=== PATIENT | male | born 1930 | race Caucasian/White ===

== ENCOUNTER 2016-11-25 19:46 | Emergency (ER) | payer MEDICARE, BC ==
--- NOTE | 2016-11-25 19:58 | EDM.PDOC ---
ED HPI GENERAL MEDICAL PROBLEM - General Chief Complaint: Cardiovascular Problem Stated Complaint: BLOOD PRESSURE OVER 200 Time Seen by Provider: 11/25/16 19:58 - History of Present Illness INITIAL COMMENTS - FREE TEXT/NARRATIVE: 86-year-old male presents emergency room with elevated blood pressure. He is scratch that Patient is noticed his blood pressure going up at times the top number been above 200. Patient was recently had a blood pressure medicine adjusted [facility] [place] the recently checked what sounds like a renal ultrasound that was unrevealing. Patient denies any dizziness headache change in neurologic 's check status no chest pain chest pressure he is otherwise doing okay but is very concerned about his blood pressure. The patient recently had his diltiazem increased from 60 mg a day to 120 mg a day it appears to be the long-acting formulation the XT. - Related Data Allergies Allergy/AdvReac Type Severity Reaction Status Date / Time No Known Allergies Allergy Verified 11/25/16 19:56 Home Meds: Home Meds Aspirin [Halfprin] 81 mg PO BRK 11/25/16 [History] Diltiazem HCl [Cartia Xt] 120 mg PO Q24H #15 cap.er.24h 11/25/16 [Rx] Diltiazem [Cardizem] 60 mg PO QPM 11/25/16 [History] Ferrous Sulfate [Ferosul] 325 mg PO QAM 11/25/16 [History] Hydrochlorothiazide 25 mg PO DAILY 11/25/16 [History] Hydrocodone/Acetaminophen [Hydrocodon-Acetaminophen 5-325] 1 tab PO Q6H PRN 09/08 [History] Losartan [Cozaar] 50 mg PO DAILY 11/25/16 [History] Omeprazole 20 mg PO QAM 11/25/16 [History] Simvastatin [Zocor] 10 mg PO DAILY 11/25/16 [History] Tamsulosin HCl 0.4 mg PO BID 11/25/16 [History] Vit C/E/Zn/Coppr/Lutein/Zeaxan [Preservision Areds 2 Softgel] 1 tab PO BID 11/25 [History] cloNIDine [Catapres] 0.05 mg PO Q12HR #15 tablet 11/25/16 [Rx] metFORMIN [Glucophage] 1,000 mg PO BID 11/25/16 [History] ED ROS GENERAL - Review of Systems Review Of Systems: See Below Constitutional: Reports: No Symptoms HEENT: Reports: No Symptoms Respiratory: Reports: No Symptoms Cardiovascular: Reports: Blood Pressure Problem. Denies: Chest Pain, Dyspnea on Exertion, Edema, Lightheadedness, Syncope GI/Abdominal: Reports: No Symptoms Neurological: Reports: No Symptoms ED EXAM, GENERAL - Physical Exam Exam: See Below Exam Limited By: No Limitations General Appearance: Alert, No Apparent Distress Eye Exam: Bilateral Eye: Normal Inspection Head: Atraumatic, Normocephalic Neck: Normal Inspection, Supple, Non-Tender, Full Range of Motion Respiratory/Chest: No Respiratory Distress, Lungs Clear, Normal Breath Sounds Cardiovascular: Normal Peripheral Pulses, Regular Rate, Rhythm, No Edema GI/Abdominal: Normal Bowel Sounds, Soft, Other (He has a abdominal bruit on the left side no midline bruits no pulsatile masses). No: No Abnormal Bruit, Distended, Guarding, Rigid, Rebound, Tender Extremities: Normal Inspection, No Pedal Edema Neurological: Alert, Oriented, Normal Cognition Course - Vital Signs Last Recorded V/S: Last Vital Signs Temp 36.5 C 11/25/16 19:57 Pulse 72 11/25/16 19:57 Resp 11 L 11/25/16 19:57 BP 180/73 H 11/25/16 20:17 Pulse Ox 97 11/25/16 19:57 - Orders/Labs/Meds Orders: Active Orders 24 hr Category Date Time Status EKG Documentation Completion [RC] STAT Care 11/25/16 20:13 Active Labs: Laboratory Tests 11/25/16 Range/Units 20:30 Sodium 139 (136-145) mEq/L Potassium 4.2 (3.5-5.1) mEq/L Chloride 102 (98-107) mEq/L Carbon Dioxide 29 (21-32) mEq/L Anion Gap 12.2 (5-15) BUN 39 H (7-18) mg/dL Creatinine 2.0 H (0.7-1.3) mg/dL Est Cr Clr Drug Dosing 22.44 mL/min Estimated GFR (MDRD) 32 (>60) mL/min BUN/Creatinine Ratio 19.5 H (14-18) Glucose 257 H (83-115) mg/dL Calcium 8.8 (8.5-10.1) mg/dL Meds: Medications Discontinued Medications Generic Name Dose Route Start Last Admin Trade Name July PRN Reason Stop Dose Admin Clonidine HCl 0.1 mg 11/25/16 20:12 11/25/16 20:17 Catapres PO 11/25/16 20:13 0.1 mg ONETIME ONE Administration - Re-Assessments/Exams Free Text/Narrative Re-Assessment/Exam: 11/25/16 21:24 Patient has done well here in the emergency department he hasn't EKG shows no acute changes he's had some sinus irregularity P waves are not consistent and in the inferior leads he has some artifact. Laboratory evaluation shows a creatinine of 2.0 BUN in the mid 30s she received 0.1 of clonidine upon arrival here his blood pressures are down to 160s. With further discussion the patient he usually starts having problems with his blood pressure gets below 140 at this point we'll discharge the patient home on clonidine 0.1 one half tablet twice a day we'll refill his diltiazem XT 120 mg a day enough to get him by until he has follow-up at the [facility] next week is suggested that they discuss abdominal imaging with the [facility] if it has not already been done to be screened for abdominal aortic aneurysm. Departure - Departure Time of Disposition: 21:28 Disposition: Home, Self-Care 01 Clinical Impression: Hypertension Prescriptions: cloNIDine [Catapres] 0.05 mg PO Q12HR #15 tablet Diltiazem HCl [Cartia Xt] 120 mg PO Q24H #15 cap.er.24h Forms: ED Department Discharge Additional Instructions: Return to the emergency room with any questions problems or worsening symptoms. Follow-up with the [facility] next week as scheduled. You have been started on a new medication, this is clonidine, take one half tablet twice daily to help with her blood pressure. I have refilled your Cartia XL continue to take this one tablet daily. On your follow-up at the [facility] discuss what ultrasound you had done. Did they look at your aorta, if not getting his looked at would be advisable. - My Orders Last 24 Hours: My Active Orders 11/25/16 20:13 EKG Documentation Completion [RC] STAT - Assessment/Plan Last 24 Hours: My Active Orders 11/25/16 20:13 EKG Documentation Completion [RC] STAT
[2016-11-25] MEDS ORDERED: cloNIDine 0.1 MG Tab PO ONE (20:12)
[2016-11-25 20:19] VITALS: BP 180/73
== END 2016-11-25 21:51 | disposition home or self-care (01) ==
LOC: JD.ED 19:46
DX: I10 Essential (primary) hypertension (principal); Z79.82 Long term (current) use of aspirin; Z79.84 Long term (current) use of oral hypoglycemic drugs
CPT/HCPCS: 36415; 80048; 93005; 99283; A9270